=== PATIENT | female | born 1985 | race Caucasian/White ===

== ENCOUNTER 2017-11-12 03:13 | Emergency (ER) | payer BC, MEDICAID ==
[2017-11-12 03:27] VITALS: BMI 37.8
[2017-11-12 03:31] VITALS: BP 130/83; PULSE 88; RESP 16; TEMP 98.1; O2SAT 98
[2017-11-12] MEDS ORDERED: Alum-Mag Hydrox-Simethicone Susp (30 mL) PO STA (03:35)
[2017-11-12 04:45] LABS: HEMOGLOBIN 10.9 g/dL (12.0-16.0); MEAN CELL VOLUME 69.1 fl (81.0-99.0); MEAN CORPUSCULAR HEMOGLOBIN 21.9 pg (27.0-31.0); MEAN CORPUSCULAR HGB CONC 31.7 g/dL (33.0-37.0); RBC 4.95 Mil/uL (3.80-5.20); WHITE BLOOD COUNT 12.1 K/uL (4.8-10.8)
[2017-11-12 04:53] LABS: BLOOD UREA NITROGEN 24 mg/dl (7-17); CALCIUM 9.3 mg/dL (8.4-10.2); GFR AFRICAN-AMERICAN > 60; GFR NON-AFRICAN AMERICAN > 60
--- NOTE | 2017-11-12 06:37 | ED PDOC ---
HPI: Chest Pain Time Seen by Provider: 11/12/17 03:27 Chief Complaint (Nursing): Chest Pain Chief Complaint (Provider): chest pain History Per: Patient History/Exam Limitations: no limitations Onset/Duration Of Symptoms: Hrs Current Symptoms Are (Timing): Better Associated Symptoms: denies: Nausea Additional Complaint(s): Perlita Silveira is a 32 year old female with no past medical history, who presents to the ER with complains of non-radiating chest pain starting at the breast, onset prior to arrival. She reports that the pain resolved before arriving to the ER and states she has experienced similar pains three times this year, worsened with laying down. She denies any shortness of breath, fevers , vomiting, or diarrhea. PMD: non- provided Past Medical History Reviewed: Historical Data, Nursing Documentation, Vital Signs Vital Signs: Last Vital Signs Temp 98.1 F 11/12/17 03:27 Pulse 88 11/12/17 03:40 Resp 16 11/12/17 03:27 BP 130/83 11/12/17 03:40 Pulse Ox 98 11/12/17 06:37 - Medical History PMH: No Chronic Diseases - Surgical History Surgical History: No Surg Hx - Family History Family History: States: Unknown Family Hx - Home Medications Home Medications: Ambulatory Orders Medication Instructions Recorded Ferrous Sulfate [Feosol] 325 mg PO DAILY #0 tab 07/03/16 Ibuprofen [Motrin] 600 mg PO Q6 PRN #0 tab 07/03/16 Famotidine [Pepcid] 20 mg PO BID #20 tab 11/12/17 - Allergies Allergies/Adverse Reactions: Allergies Allergy/AdvReac Type Severity Reaction Status Date / Time No Known Allergies Allergy Verified 11/12/17 03:27 Review of Systems ROS Statement: Except As Marked, All Systems Reviewed And Found Negative Constitutional: Negative for: Fever Cardiovascular: Positive for: Chest Pain Respiratory: Negative for: Shortness of Breath Gastrointestinal: Negative for: Nausea, Vomiting, Diarrhea Physical Exam - Reviewed Nursing Documentation Reviewed: Yes Vital Signs Reviewed: Yes - Physical Exam Appears: Positive for: Non-toxic, No Acute Distress Head Exam: Positive for: ATRAUMATIC, NORMAL INSPECTION, NORMOCEPHALIC Skin: Positive for: Normal Color, Warm, Dry Eye Exam: Positive for: EOMI, Normal appearance, PERRL Neck: Positive for: Normal, Painless ROM, Supple Cardiovascular/Chest: Positive for: Regular Rate, Rhythm. Negative for: Murmur Respiratory: Positive for: Normal Breath Sounds. Negative for: Respiratory Distress Gastrointestinal/Abdominal: Positive for: Normal Exam, Soft. Negative for: Tenderness Back: Positive for: Normal Inspection. Negative for: L CVA Tenderness, R CVA Tenderness, Vertebral Tenderness Extremity: Positive for: Normal ROM. Negative for: Pedal Edema, Deformity, Swelling Neurologic/Psych: Positive for: Alert, Oriented - Laboratory Results Result Diagrams: 11/12/17 04:20 11/12/17 04:20 - ECG O2 Sat by Pulse Oximetry: 98 (RA) Pulse Ox Interpretation: Normal Medical Decision Making Medical Decision Making: Time: 4:20 Impression: non-cardiac chest pain; likely gastritis Plan: --EKG --BMP --Troponin --CBC --CXR --Lidocane 15 ml PO --Maalox Plus 30 ml PO --Pepcid 20 mg PO 5:35 Reevaluation: Work up returned negative. Upon provider evaluation patient is medically stable, and requires no further treatment in the ED at this time. Patient will be discharged . Counseling was provided and all questions were answered regarding diagnosis and need for follow up with technical account manager. There is agreement to discharge plan. Return if symptoms persist or worsen. Scribe Attestation: Documented by Jacquelyn Jacobs, acting as a scribe for Krishan Marinelli MD Provider Scribe Attestation: All medical record entries made by the Scribe were at my direction and personally dictated by me. I have reviewed the chart and agree that the record accurately reflects my personal performance of the history, physical exam, medical decision making, and the department course for this patient. I have also personally directed, reviewed, and agree with the discharge instructions and disposition. Disposition - Clinical Impression Clinical Impression: Non-cardiac chest pain - Disposition Referrals: [facility] [Outside] Lizbeth Hewitt MD [Staff Provider] - Disposition: Routine/Home Disposition Time: 05:35 Condition: IMPROVED Prescriptions: Famotidine [Pepcid] 20 mg PO BID #20 tab Instructions: Chest Pain That Is Not Caused by the Heart (DC) Forms: [employer] (Thai)
--- NOTE | 2017-11-12 10:13 | RAD ---
HISTORY: cp COMPARISON: No prior. TECHNIQUE: Chest PA and lateral FINDINGS: LUNGS: No active pulmonary disease. PLEURA: No significant pleural effusion identified. No pneumothorax apparent. CARDIOVASCULAR: Normal. OSSEOUS STRUCTURES: No significant abnormalities. VISUALIZED UPPER ABDOMEN: Normal. OTHER FINDINGS: None. IMPRESSION: No active disease.
--- NOTE | 2017-11-12 17:00 | CARD ---
APPROVED REPORT EKG Measurement Heart [id number] <Conclusion> Normal sinus rhythm Normal ECG
== END 2017-11-12 06:00 | disposition home or self-care (01) ==
LOC: H.ER 03:13
DX: R07.89 Other chest pain (principal)